=== PATIENT | female | born 1975 | race Caucasian/White ===

== ENCOUNTER 2017-10-30 22:09 | Emergency (ER) | payer OTHER ==
[~2017-10-30] VITALS: Ht 177.8 cm; Wt 76.2 kg
[~2017-10-30 22:09] MED LIST: LEVAQUIN 500 M500 M1 PO; PREDNISONE 20 M20 MG PO; TRAMADOL 50 MG50 MG PO
== END 2017-10-30 23:51 | disposition home or self-care (01) ==
LOC: ER 22:09
DX: J06.9 Acute upper respiratory infection, unspecified (principal); J40 Bronchitis, not specified as acute or chronic; J04.0 Acute laryngitis; J45.909 Unspecified asthma, uncomplicated; Z90.49 Acquired absence of other specified parts of digestive tract; Z88.0 Allergy status to penicillin; Z88.1 Allergy status to other antibiotic agents

== ENCOUNTER → 2020-10-04 | Outpatient (CLI) | payer OTHER | LOC: CAT 08:03 | PROVIDERS: ATTEND Neuromusculoskeletal Medicine & OMM | DX: Z13.6 Encounter for screening for cardiovascular disorders (principal); I25.10 Atherosclerotic heart disease of native coronary artery without angina pectoris; E78.00 Pure hypercholesterolemia, unspecified ==